=== PATIENT | male | born 1955 | race Caucasian/White ===

== ENCOUNTER → 2018-06-11 | Outpatient (CLI) | payer OTHER ==
[2016-01-12 09:01] VITALS: BP 146/76
[~2018-06-11] MED LIST: ATOR20TA58 PO; FENO145T PO; FINA5TAB PO; GLIM1TAB2 PO; LOSA50TA7 PO; NIAC500T PO; OMEG1CAP2 PO; TAMS0.4C2 PO
[2018-06-11 23:14] LABS: HEMOGLOBIN A1C 7.6 % (4.8-5.6)
== END | disposition home or self-care (01) ==
LOC: LAB 14:36
PROVIDERS: ATTEND Internal Medicine
DX: E11.65 Type 2 diabetes mellitus with hyperglycemia (principal)
CPT/HCPCS: 36415; 83036

== ENCOUNTER → 2019-03-04 | Outpatient (CLI) | payer OTHER ==
[2016-01-12 09:01] VITALS: BP 146/76
[~2019-03-04] MED LIST changes: +LOSA-73 PO; -LOSA50TA7 PO
[2019-03-04 11:24] LABS: BASO % 1 % (0-3); EOS # 0.2 x10^3/uL (0.0-0.7); EOS % 2 % (0-3); HEMATOCRIT 43.3 % (39.0-53.0); HEMOGLOBIN 15.2 g/dL (13.0-17.5); LYMPH # 2.2 x10^3/uL (1.0-4.8); LYMPH % 28 % (24-48); MEAN CORPUSCULAR HEMOGLOBIN 32 pg (25-35); MEAN CORPUSCULAR HGB CONC 35 g/dL (31-37); MEAN CORPUSCULAR VOLUME 90 fL (79-100); MONO # 0.6 x10^3/uL (0.0-1.1); MONO % 7 % (0-9); NEUT % 63 % (31-73); PLATELET COUNT 214 x10^3/uL (140-400); RED BLOOD COUNT 4.82 x10^6/uL (4.30-5.70); RED CELL DISTRIBUTION WIDTH 13.6 % (11.5-14.5)
[2019-03-04 11:38] LABS: ALBUMIN/GLOBULIN RATIO 1.3 (1.0-1.7); CALCIUM 9.3 mg/dL (8.5-10.1); CREATININE 0.9 mg/dL (0.7-1.3); GFR 84.7; POTASSIUM 4.3 mmol/L (3.5-5.1); TOTAL BILIRUBIN 0.8 mg/dL (0.2-1.0); TOTAL PROTEIN 7.2 g/dL (6.4-8.2)
[2019-03-04 11:44] LABS: CHOLESTEROL/HDL RATIO 3.7
[2019-03-06 19:09] LABS: HCV ULTRA QUANT PCR HCV Not Detected IU/mL (.)
== END | disposition home or self-care (01) ==
LOC: LAB 10:51
PROVIDERS: ATTEND Family Medicine
DX: Z12.5 Encounter for screening for malignant neoplasm of prostate (principal); E11.65 Type 2 diabetes mellitus with hyperglycemia; E78.2 Mixed hyperlipidemia; I10 Essential (primary) hypertension
CPT/HCPCS: 36415; 80053; 80061; 82043; 84443; 85025; 87521; G0103

== ENCOUNTER → 2019-03-13 | Outpatient (CLI) | payer OTHER ==
[2016-01-12 09:01] VITALS: BP 146/76
--- NOTE | 2019-03-13 09:11 | KCIC ---
Examination: SCAN OF ABDOMINAL AORTA History: Abdominal aortic aneurysm screening. Smoker. Comparison/Correlation: None Findings: Ultrasound imaging of the abdominal aorta was performed. Abdominal aorta measures 2.1 cm x 2.1 cm proximally. Mid abdominal aorta measures 1.5 cm x 1.6 cm. Distal abdominal aorta measures 1.3 cm x 1.5 cm. Proximal abdominal aortic peak systolic velocity of 97.8 cm/s is evident. Mid abdominal aortic peak systolic velocity is 108.7 cm per second. Distal abdominal aortic peak systolic velocity is 155 cm/s. Right proximal common iliac artery peak systolic velocity of 211.6 cm/s is present. Left proximal common iliac artery peak systolic velocity of 233.8 cm/s noted. Fatty infiltration of liver is seen. Impression: No abdominal aortic aneurysm. Electronically signed by: Madhav Tai MD (03/13/2019 9:08 AM) [facility]
== END | disposition home or self-care (01) ==
LOC: KCIC US 07:36
PROVIDERS: ATTEND Family Medicine
DX: Z13.6 Encounter for screening for cardiovascular disorders (principal); K76.0 Fatty (change of) liver, not elsewhere classified; F17.200 Nicotine dependence, unspecified, uncomplicated
CPT/HCPCS: 76770

== ENCOUNTER → 2020-03-17 | Outpatient (CLI) | payer OTHER ==
[2016-01-12 09:01] VITALS: BP 146/76
[~2020-03-17] MED LIST changes: -GLIM1TAB2 PO; +GLIM1TAB7 PO
[2020-03-17 09:35] LABS: BASO % 0 % (0-3); EOS # 0.2 x10^3/uL (0.0-0.7); EOS % 2 % (0-3); HEMATOCRIT 41.2 % (39.0-53.0); HEMOGLOBIN 14.7 g/dL (13.0-17.5); LYMPH % 24 % (24-48); MEAN CORPUSCULAR HEMOGLOBIN 31 pg (25-35); MEAN CORPUSCULAR HGB CONC 36 g/dL (31-37); MEAN CORPUSCULAR VOLUME 88 fL (79-100); MONO # 0.6 x10^3/uL (0.0-1.1); MONO % 7 % (0-9); NEUT # 5.6 x10^3/uL (1.8-7.7); NEUT % 67 % (31-73); PLATELET COUNT 247 x10^3/uL (140-400); RED BLOOD COUNT 4.69 x10^6/uL (4.30-5.70); RED CELL DISTRIBUTION WIDTH 13.1 % (11.5-14.5); WHITE BLOOD COUNT 8.4 x10^3/uL (4.0-11.0)
[2020-03-17 10:06] LABS: ALBUMIN/GLOBULIN RATIO 1.2 (1.0-1.7); CALCIUM 9.6 mg/dL (8.5-10.1); CREATININE 1.2 mg/dL (0.7-1.3); GFR 60.6; POTASSIUM 4.6 mmol/L (3.5-5.1); TOTAL BILIRUBIN 0.7 mg/dL (0.2-1.0); TOTAL PROTEIN 7.4 g/dL (6.4-8.2)
[2020-03-17 10:08] LABS: CHOLESTEROL/HDL RATIO 3.8
[2020-03-17 20:08] LABS: CREAT RD UR 53.1 mg/dL (Not Estab.); MICROALB RD UR 123.5 ug/mL (Not Estab.)
== END | disposition home or self-care (01) ==
LOC: LAB 08:26
PROVIDERS: ATTEND Family Medicine
DX: E11.9 Type 2 diabetes mellitus without complications (principal); I10 Essential (primary) hypertension; E78.2 Mixed hyperlipidemia
CPT/HCPCS: 36415; 80053; 80061; 82043; 82570; 84443; 85025

== ENCOUNTER → 2021-06-24 | Outpatient (CLI) | payer MEDICARE ==
[2016-01-12 09:01] VITALS: BP 146/76
--- NOTE | 2021-06-24 18:56 | KCIC ---
EXAM: CT CHEST WITHOUT CONTRAST-LOW DOSE LUNG SCREENING HISTORY: Lung cancer screening, smoking history COMPARISON: None TECHNIQUE: Helical CT of the chest performed without contrast per low-dose lung screening protocol. Coronal and sagittal reformats were obtained. One or more of the following individualized dose reduction techniques were utilized for this examinat ion: 1. Automated exposure control 2. Adjustment of the mA and/or kV according to patient size 3. Use of iterative reconstruction technique. FINDINGS: Thyroid gland is unremarkable. Heart is normal in size. Small pericardial effusion. Main pulmonary ar mj is mildly enlarged. Thoracic aorta is normal in caliber. Mild calcified aortic atherosclerosis. Aortic valve calcifications. No mediastinal, hilar, or axillary lymphadenopathy. There are calcified left hilar lymph nodes. 1.1 cm calcified granuloma in the left upper lobe. There is a 5 mm noncalcified subpleural nodule in the inferior right lower lobe (image 227, series 6). 4 mm noncalcified nodule in the right lower lobe (image 191, series 6). 4 mm noncalcified subpleural nodule in the right middle lobe (image 170, seri es 6). 4 mm noncalcified nodule along the minor fissure in the right middle lobe (image 122, series 6 ). 3 mm noncalcified subpleural nodule in the right upper lobe lobe (image 145, series 6). 4 mm nonca lcified nodule in the left upper lobe (image 149, series 6). Mild airway wall thickening. Mild parase ptal emphysema. No pleural effusion. Visualized portion of the upper abdomen is unremarkable. No acute osseous abnormality. Probable conge nital osseous at T3 and T4. Osseous bridging anteriorly from T2 to T5. Mild degenerative disc disease . IMPRESSION: 1. Multiple small bilateral noncalcified pulmonary nodules measuring up to 5 mm. 2. Lung RADS category 2-benign appearance or behavior. Continue annual screening with low-dose CT in 12 months. 3. Mild paraseptal emphysema. 4. Sequela of granulomatous disease. 5. Aortic valve calcifications. Electronically signed by: Bria Graham MD (06/24/2021 6:54 PM) [facility]
== END ==
LOC: KCIC CT 14:30
PROVIDERS: ATTEND Family Medicine
DX: Z12.2 Encounter for screening for malignant neoplasm of respiratory organs (principal); R91.8 Other nonspecific abnormal finding of lung field; I35.8 Other nonrheumatic aortic valve disorders; J43.9 Emphysema, unspecified; M51.34 Other intervertebral disc degeneration, thoracic region; J84.10 Pulmonary fibrosis, unspecified; I31.3 Pericardial effusion (noninflammatory); F17.210 Nicotine dependence, cigarettes, uncomplicated
CPT/HCPCS: 71271